=== PATIENT | male | born 2000 ===

== ENCOUNTER 2022-09-12 00:33 | Emergency (ER) | payer SELFPAY ==
[2022-09-12] MEDS ORDERED: cloNIDine 0.1 MG Tab PO ONE (00:51)
[2022-09-12] MEDS ORDERED: Propranolol 20 MG Tab PO ONE (00:51)
[2022-09-12 01:10] LABS: BASOPHILS PERCENT AUTO 0.3 % (0.0-1.5); EOSINOPHILS ABSOLUTE AUTO 0.1 K/uL (0.0-0.7); EOSINOPHILS PERCENT AUTO 0.7 % (0.0-7.0); HEMATOCRIT 43.8 % (38.0-50.0); HEMOGLOBIN 14.8 g/dL (13.0-17.0); LYMPHOCYTES ABSOLUTE AUTO 3.7 K/uL (0.6-2.4); LYMPHOCYTES PERCENT AUTO 42.5 % (16.0-40.0); MEAN CORPUSCULAR HEMOGLOBIN 31.4 pg (27.0-32.0); MEAN CORPUSCULAR HGB CONC 33.8 g/dL (31.0-37.0); MEAN CORPUSCULAR VOLUME 92.8 fL (80.0-98.0); MONOCYTES ABSOLUTE AUTO 0.6 K/uL (0.0-0.8); MONOCYTES PERCENT AUTO 6.9 % (0.0-15.0); NEUTROPHILS ABSOLUTE AUTO 4.3 K/uL (1.4-5.7); NEUTROPHILS PERCENT AUTO 49.6 % (48.0-80.0); NRBC ABSOLUTE 0 K/uL; PLATELET COUNT,PLT 361 K/uL (150-400); RED BLOOD CELL COUNT 4.72 M/uL (4.50-5.90); WHITE BLOOD CELL COUNT,WBC 8.59 K/uL (4.0-11.0)
[2022-09-12 01:43] LABS: A/G RATIO 1.1 (0.9-1.6); BILIRUBIN TOTAL 0.2 mg/dL (0.2-1.0); CALCIUM 9.1 mg/dL (8.5-10.1); CARBON DIOXIDE,CO2 24.2 mmol/L (21.0-32.0); CREATININE 1.5 mg/dL (0.8-1.3); EST CRCL DRUG DOSING (CG) 92.32 mL/min; POTASSIUM,K 3.7 mmol/L (3.5-5.1); PROTEIN TOTAL,TP 7.8 g/dL (6.4-8.2); TSH ULTRASENSITIVE 2.98 uIU/mL (0.36-3.74)
[2022-09-12 02:16] LABS: AMPHETAMINES SCREEN, URINE NEGATIVE (CUTOFF=500); BARBITURATE SCREEN,URINE NEGATIVE (CUTOFF=200); BENZODIAZEPINES SCREEN,URINE NEGATIVE (CUTOFF=150); BUPRENORPHINE SCREEN,URINE NEGATIVE (CUTOFF=10); METHADONE SCREEN, URINE NEGATIVE (CUTOFF=200); METHAMPHETAMINES SCREEN, URINE NEGATIVE (CUTOFF=500); OXYCODONE SCREEN,URINE NEGATIVE (CUT0FF=100); PCP SCREEN,URINE NEGATIVE (CUTOFF=25); PROPOXYPHENE SCREEN,URINE NEGATIVE (CUTOFF=300); THC SCREEN,URINE 20 NG/ML NEGATIVE (CUTOFF=50)
== END 2022-09-12 02:45 | disposition home or self-care (01) ==
LOC: MW.ED 00:33
DX: R45.851 Suicidal ideations (principal); F43.21 Adjustment disorder with depressed mood; F10.10 Alcohol abuse, uncomplicated; F17.210 Nicotine dependence, cigarettes, uncomplicated; Z88.1 Allergy status to other antibiotic agents; Z79.899 Other long term (current) drug therapy
CPT/HCPCS: 36415; 80053; 80305; 80307; 84443; 85025; 99285; A9270

== ENCOUNTER 2023-03-23 02:25 | Emergency (ER) | payer OTHER ==
[~2023-03-23 02:25] MED LIST: Lactated Ringers 1,000 ML IV ONE; Tranexamic Acid 1,000 MG in Sodium Chloride 0.9% 100 ML IV ONE
[2023-03-23] MEDS ORDERED: Norepinephrine Bit/D5W Premix 250 ML IV SCH (02:30)
[2023-03-23] MEDS ORDERED: Lactated Ringers 1,000 ML IV SCH (02:45)
[2023-03-23] MEDS ORDERED: Sodium Chloride 0.9% 2.5 ML Syringe FLUSH PRN (02:50)
[2023-03-23] MEDS ORDERED: Sodium Chloride 0.9% 10 ML Syringe FLUSH PRN (02:50)
[2023-03-23 02:57] LABS: BASOPHILS ABSOLUTE AUTO 0.07 K/uL (0.00-0.20); BASOPHILS PERCENT AUTO 0.5 % (0.0-1.0); EOSINOPHILS ABSOLUTE AUTO 0.07 K/uL (0.00-0.45); EOSINOPHILS PERCENT AUTO 0.5 % (0.0-6.0); HEMATOCRIT 41.4 % (42.0-52.0); HEMOGLOBIN 13.6 g/dL (14.0-18.0); IMMATURE GRAN PERCENT AUTO 0.7 % (0.0-0.4); LYMPHOCYTES ABSOLUTE AUTO 6.26 K/uL (1.00-4.80); LYMPHOCYTES PERCENT AUTO 41.8 % (24.0-44.0); MEAN CORPUSCULAR HEMOGLOBIN 31.6 pg (28.0-32.0); MEAN CORPUSCULAR HGB CONC 32.9 g/dL (32.0-36.0); MEAN CORPUSCULAR VOLUME 96.1 fL (83.0-99.0); MONOCYTES ABSOLUTE AUTO 0.78 K/uL (0.00-0.80); MONOCYTES PERCENT AUTO 5.2 % (0.0-8.0); NEUTROPHILS ABSOLUTE AUTO 7.71 K/uL (1.80-7.70); NEUTROPHILS PERCENT AUTO 51.3 % (41.0-71.0); PLATELET COUNT,PLT 385 K/uL (150-400); RED BLOOD CELL COUNT 4.31 M/uL (4.52-5.90); WHITE BLOOD CELL COUNT,WBC 14.99 K/uL (3.9-11.3)
[2023-03-23 03:09] LABS: ALANINE AMINOTRANSFERASE,ALT 48 IU/L (14-63); ALBUMIN 3.5 g/dL (3.4-5.0); ALKALINE PHOSPHATASE 97 U/L (46-116); ASPARTATE AMNIOTRANSFERASE,AST 32 IU/L (15-37); BILIRUBIN TOTAL 0.2 mg/dL (0.2-1.0); BLOOD UREA NITROGEN,BUN 9 mg/dL (7.0-18.0); CALCIUM 8.3 mg/dL (8.5-10.1); CARBON DIOXIDE,CO2 21.7 mmol/L (21.0-32.0); CHLORIDE,CL 107 mmol/L (98-107); CREATININE 1.2 mg/dL (0.8-1.3); GLUCOSE RANDOM 174 mg/dL (74-106); POTASSIUM,K 3.3 mmol/L (3.5-5.1); PROTEIN TOTAL,TP 6.9 g/dL (6.4-8.2); SODIUM,NA 143 mmol/L (136-148)
[2023-03-23] MEDS ORDERED: Tranexamic Acid 1,000 MG/10 ML Vial IVPUSH ONE (03:15)
[2023-03-23 03:22] LABS: ESTIMATED GFR 88 mL/min (>60)
[2023-03-23] MEDS ORDERED: Vasopressin 100 UNITS in Dextrose 5% in Water 245 ML IV SCH ×2 (04:30)
== END 2023-03-23 04:37 ==
LOC: MW.ED 02:25
DX: S01.83XA Puncture wound without foreign body of other part of head, initial encounter (principal); Z88.1 Allergy status to other antibiotic agents
CPT/HCPCS: 36415; 71045; 80053; 85025; 96361; 96374; 96375; 99285; G0390; J1953; J3490; J7060; J7120